=== PATIENT | female | born 1975 | race American Indian/Alaskan Native ===

== ENCOUNTER 2017-08-24 11:21 | Emergency (ER) | payer BC, OTHER ==
[2017-08-24 11:55] VITALS: BP 158/100
[2017-08-24] MEDS ORDERED: MOTRIN PO ONE (12:32)
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
[2017-08-24 13:12] LABS: Bilirubin,Urine NEG (Negative); Blood,Urine SM (Negative); Ketones,Urine NEG (Negative); Leukocyte Esterase,Urine NEG (Negative); Mucus,Urine FEW /HPF; Nitrite,Urine NEG (Negative); Protein,Urine <15 mg/dL mg/dL (Negative); Urobilinogen,Urine < 2.0 mg/dL (<2.0)
== END 2017-08-24 12:56 | disposition home or self-care (01) ==
LOC: ED 11:21
DX: S13.4XXA Sprain of ligaments of cervical spine, initial encounter (principal); S39.012A Strain of muscle, fascia and tendon of lower back, initial encounter; F17.200 Nicotine dependence, unspecified, uncomplicated; I10 Essential (primary) hypertension; V89.2XXA Person injured in unspecified motor-vehicle accident, traffic, initial encounter; Y93.89 Activity, other specified; Y92.89 Other specified places as the place of occurrence of the external cause; Y99.8 Other external cause status
CPT/HCPCS: 81001; 81025; 99283

== ENCOUNTER 2019-02-16 11:32 | Emergency (ER) | payer BC, OTHER ==
--- NOTE | 2019-02-16 11:43 | Emergency Department Report ---
Chief Complaint: Abdominal Pain Stated Complaint: ABD PAIN Time Seen by Provider: 02/16/19 11:38 - HPI History of Present Illness: This is a 44 y.o. F. that presents to the ER with right flank pain x 1 week. Took gas-x this morning with no improvement of symptoms. Admits to nausea w/o vomiting. Denies diarrhea LMP 02/02/2019 PMH: HTN - Exam Vital Signs: Vital Signs 02/16/19 11:40 Temperature 97.9 F Pulse Rate 98 H Respiratory 16 Rate Blood Pressure 192/114 O2 Sat by Pulse 100 Oximetry MSE screening note: Focused history and physical exam performed. Due to findings the following was ordered: This initial assessment/diagnostic orders/clinical plan/treatment(s) is/are subject to change based on patient's health status, clinical progression and re- assessment by fellow clinical providers in the ED. Further treatment and workup at subsequent clinical providers discretion. Patient/guardians urged not to elope from the ED as their condition may be serious if not clinically assessed and managed. Initial orders include: Labs ED Disposition for MSE Condition: Stable Instructions: Abdominal Pain (ED)
[2019-02-16 12:45] LABS: Basophils # (Auto) 0.1 K/mm3 (0.0-0.1); Basophils % (Auto) 1.1 % (0.0-1.8); Eosinophils # (Auto) 0.4 K/mm3 (0.0-0.4); Eosinophils % (Auto) 3.8 % (0.0-4.3); Hematocrit 34.6 % (30.3-42.9); Hemoglobin 11.7 gm/dl (10.1-14.3); Lymphocytes # (Auto) 2.2 K/mm3 (1.2-5.4); Lymphocytes % (Auto) 23.2 % (13.4-35.0); Mean Corpuscular HGB Conc 34 % (30-34); Mean Corpuscular Volume 76 fl (79-97); Monocytes # (Auto) 0.6 K/mm3 (0.0-0.8); Monocytes % (Auto) 5.8 % (0.0-7.3); Platelet Count 424 K/mm3 (140-440); Red Blood Count 4.53 M/mm3 (3.65-5.03); Red Cell Distribution Width 17.6 % (13.2-15.2)
[2019-02-16] MEDS ORDERED: MORPHINE IV ONE ×2 (12:52→15:07)
[2019-02-16] MEDS ORDERED: ZOFRAN IV ONE (12:52)
[2019-02-16] MEDS ORDERED: NACL 0.9% 1000 ML 1,000 ML IV ONE (12:52)
--- NOTE | 2019-02-16 12:58 | Emergency Department Report ---
<BUTCH SOLIMANBENJAMIN Nichols - Last Filed: 02/16/19 16:53> ED Back Pain/Injury HPI - General Chief Complaint: Abdominal Pain Stated Complaint: ABD PAIN Time Seen by Provider: 02/16/19 11:38 Source: patient Limitations: No Limitations - History of Present Illness Initial Comments: This 44-year-old female presents to ED with right flank pain 1 week. Patient denies fever, nausea, vomiting, cough. Patient states pain is worse with twisting of torso, walking, deep breath. Patient states she initially thought it was a possible pulled muscle. Patient denies any recent trauma, excessive pushing, pulling, or lifting. Patient denies shortness of breath, but states that the pain "takes my breath away." Patient states pain began underneath her right shoulder blade and radiates around to the right upper quadrant. Patient reports previous cholecystectomy. MD Complaint: back pain -: week(s) (1) Similar Symptoms Previously: No Radiation: abdomen Severity: severe Quality: sharp Consistency: intermittent Improves With: immobilization Worsens With: movement, deep breaths/cough Context: unknown Associated Symptoms: abdominal pain. denies: chest pain, cough, fever/chills, shortness of breath - Related Data Home Medications Medication Instructions Recorded Confirmed Last Taken Triamterene [Dyrenium] 25 mg PO DAILY 03/16/18 06/09/18 Unknown Previous Rx's Medication Instructions Recorded Last Taken Type Azithromycin [Zithromax Z-NOE] 250 mg PO DAILY 5 Days #6 tab 02/16/19 Unknown Rx Doxycycline Monohydrate 100 mg PO BID 10 Days #20 capsule 02/16/19 Unknown Rx Naproxen [Naprosyn] 500 mg PO BID #20 tablet 02/16/19 Unknown Rx methOCARBAMOL [Robaxin TAB] 500 mg PO Q8HR PRN #20 tablet 02/16/19 Unknown Rx traMADol [Ultram] 50 mg PO Q6HR PRN #7 tablet 02/16/19 Unknown Rx Allergies Allergy/AdvReac Type Severity Reaction Status Date / Time No Known Allergies Allergy Verified 02/16/19 11:32 ED Review of Systems Comment: All other systems reviewed and negative Constitutional: denies: chills, fever Respiratory: denies: cough, shortness of breath Cardiovascular: denies: chest pain Gastrointestinal: abdominal pain. denies: nausea, vomiting Musculoskeletal: back pain ED Past Medical Hx - Past Medical History Hx Hypertension: Yes Hx Diabetes: Yes (" BOARDERLINE" - NO MEDS) Hx GERD: Yes Hx Sickle Cell Disease: No (SC TRAIT ONLY) Hx HIV: No - Surgical History Hx Cholecystectomy: Yes - Social History Smoking Status: Current Every Day Smoker Substance Use Type: None - Medications Home Medications: Home Medications Medication Instructions Recorded Confirmed Last Taken Type Triamterene [Dyrenium] 25 mg PO DAILY 03/16/18 06/09/18 Unknown History Azithromycin [Zithromax Z-NOE] 250 mg PO DAILY 5 Days #6 tab 02/16/19 Unknown Rx Doxycycline Monohydrate 100 mg PO BID 10 Days #20 capsule 02/16/19 Unknown Rx Naproxen [Naprosyn] 500 mg PO BID #20 tablet 02/16/19 Unknown Rx methOCARBAMOL [Robaxin TAB] 500 mg PO Q8HR PRN #20 tablet 02/16/19 Unknown Rx traMADol [Ultram] 50 mg PO Q6HR PRN #7 tablet 02/16/19 Unknown Rx ED Physical Exam - General Limitations: No Limitations General appearance: alert, in no apparent distress - Head Head exam: Present: atraumatic, normocephalic - Eye Eye exam: Present: normal appearance - ENT ENT exam: Present: mucous membranes moist - Neck Neck exam: Present: normal inspection - Respiratory Respiratory exam: Present: normal lung sounds bilaterally, chest wall tenderness (right lateral lower chest wall). Absent: respiratory distress - Cardiovascular Cardiovascular Exam: Present: regular rate, normal rhythm - GI/Abdominal GI/Abdominal exam: Present: soft, tenderness (RUQ) - Back Exam Back exam: Present: tenderness (along medial border of right scapula) - Neurological Exam Neurological exam: Present: alert, oriented X3 - Psychiatric Psychiatric exam: Present: normal affect, normal mood - Skin Skin exam: Present: warm, dry, intact, normal color ED Medical Decision Making - Lab Data Result diagrams: 02/16/19 12:35 02/16/19 12:35 - Radiology Data Radiology results: report reviewed, image reviewed - Differential Diagnosis muscle strain, PE, pyelonephritis ED Disposition Clinical Impression: CAP (community acquired pneumonia) Qualifiers: Laterality: unspecified laterality Qualified Code(s): J18.9 - Pneumonia, unspecified organism Upper back strain Qualifiers: Encounter type: initial encounter Qualified Code(s): S29.012A - Strain of muscle and tendon of back wall of thorax, initial encounter Disposition: DC-01 TO HOME OR SELFCARE Is pt being admited?: No Condition: Stable Instructions: Thoracic Pain (ED), Muscle Spasm (ED), Back Pain (ED), Bacterial Pneumonia (ED) Prescriptions: Doxycycline Monohydrate 100 mg PO BID 10 Days #20 capsule Naproxen [Naprosyn] 500 mg PO BID #20 tablet methOCARBAMOL [Robaxin TAB] 500 mg PO Q8HR PRN #20 tablet PRN Reason: Muscle Spasm traMADol [Ultram] 50 mg PO Q6HR PRN #7 tablet PRN Reason: Pain Azithromycin [Zithromax Z-NOE] 250 mg PO DAILY 5 Days #6 tab Referrals: [place] E[place]KA [Primary Care Provider] - 3-5 Days <MARILIA TO - Last Filed: 02/16/19 17:51> ED Review of Systems ROS: Stated complaint: ABD PAIN Other details as noted in HPI ED Course Vital Signs 02/16/19 02/16/19 02/16/19 11:40 13:15 13:25 Temperature 97.9 F Pulse Rate 98 H Respiratory 16 17 16 Rate Blood Pressure 192/114 O2 Sat by Pulse 100 Oximetry 02/16/19 02/16/19 15:11 17:08 Temperature 97.8 F Pulse Rate 77 Respiratory 18 16 Rate Blood Pressure 136/82 O2 Sat by Pulse 100 Oximetry ED Medical Decision Making - Lab Data Result diagrams: 02/16/19 12:35 02/16/19 12:35 - Medical Decision Making Ordering Physician: ROBINSON SOLIMAN MD Date of Service: 02/16/19 Procedure(s): CT angio chest Accession Number(s): [id number] cc: ROBINSON SOLIMAN MD PROCEDURE: CT ANGIO CHEST TECHNIQUE: TECHNIQUE: CT examination of the chest after IV contrast. Multiplanar angiographic image post processing. CT DOSE LENGTH PRODUCT: 705.8 mGycm HISTORY: right chest pain COMPARISONS: None . FINDINGS: Slight cardiomegaly without pericardial effusion. Intact normal caliber thoracic aorta. Normal-appearing esophagus. No hilar mass or mediastinal adenopathy. The visualized pulmonary arteries are diffusely patent bilaterally. There is no filling defect to suggest PE. Nonspecific diffusely decreased density of liver parenchyma may reflect fatty infiltration. No visualized focal liver lesion. Surgically absent gallbladder. Small hiatal hernia. Otherwise normal visible portion of stomach. Degenerative change in the regional skeleton. No acute fracture. No pneumothorax or pleural effusion. Nonspecific groundglass opacities diffusely throughout the lung parenchyma bila terally. No focal pulmonary consolidation. No definite lung mass or pulmonary nodule. IMPRESSION: Nonspecific groundglass diffuse opacity throughout the lung parenchyma bilaterally may reflect pulmonary edema and/or pneumonitis Slight cardiomegaly Suggestion of hepatic steatosis Small hiatal hernia No CT evidence of pulmonary arterial embolic disease This document is electronically signed by Scotty Thompson MD., February 16 2019 05:00:44 PM ET Transcribed By: BAL Dictated By: SCOTTY THOMPSON MD Electronically Authenticated By: SCOTTY THOMPSON MD Signed Date/Time: 02/16/19 1702 DD/ 1543 TD/TT: 02/16/19 1543 Critical care attestation.: If time is entered above; I have spent that time in minutes in the direct care of this critically ill patient, excluding procedure time. ED Disposition Time of Disposition: 17:51
[2019-02-16 13:12] LABS: Alanine Aminotransferase 24 units/L (7-56); BUN/Creatinine Ratio 17; Blood Urea Nitrogen 10 mg/dL (7-17); Calcium 9.2 mg/dL (8.4-10.2); Hemolysis Index 2
[2019-02-16 13:23] LABS: Bacteria,Urine 1+ /HPF (Negative); Bilirubin,Urine NEG (Negative); Blood,Urine SM (Negative); Color,Urine Yellow (Yellow); Mucus,Urine FEW /HPF; Protein,Urine <15 mg/dL mg/dL (Negative); Urobilinogen,Urine < 2.0 mg/dL (<2.0)
[2019-02-16] MEDS ORDERED: MORPHINE ONE (15:11)
--- NOTE | 2019-02-16 17:02 | Cat Scan Report ---
PROCEDURE: CT ANGIO CHEST TECHNIQUE: TECHNIQUE: CT examination of the chest after IV contrast. Multiplanar angiographic image post processing. CT DOSE LENGTH PRODUCT: 705.8 mGycm HISTORY: right chest pain COMPARISONS: None . FINDINGS: Slight cardiomegaly without pericardial effusion. Intact normal caliber thoracic aorta. Normal-appearing esophagus. No hilar mass or mediastinal adenop athy. The visualized pulmonary arteries are diffusely patent bilaterally. There is no filling defect to sug gest PE. Nonspecific diffusely decreased density of liver parenchyma may reflect fatty infiltration. No visual ized focal liver lesion. Surgically absent gallbladder. Small hiatal hernia. Otherwise normal visible portion of stomach. Degenerative change in the regional skeleton. No acute fracture. No pneumothorax or pleural effusion. Nonspecific groundglass opacities diffusely throughout the lung parenchyma bilaterally. No focal pulm onary consolidation. No definite lung mass or pulmonary nodule. IMPRESSION: Nonspecific groundglass diffuse opacity throughout the lung parenchyma bilaterally may reflect pulmon jaya edema and/or pneumonitis Slight cardiomegaly Suggestion of hepatic steatosis Small hiatal hernia No CT evidence of pulmonary arterial embolic disease This document is electronically signed by Scotty Thompson MD., February 16 2019 05:00:44 PM ET
[2019-02-16 17:14] VITALS: BP 136/82
== END 2019-02-16 18:05 | disposition home or self-care (01) ==
LOC: ED 11:32
DX: S29.012A Strain of muscle and tendon of back wall of thorax, initial encounter (principal); J18.9 Pneumonia, unspecified organism; I10 Essential (primary) hypertension; K21.9 Gastro-esophageal reflux disease without esophagitis; F17.200 Nicotine dependence, unspecified, uncomplicated; X58.XXXA Exposure to other specified factors, initial encounter; Y93.89 Activity, other specified; Y92.89 Other specified places as the place of occurrence of the external cause; Y99.8 Other external cause status
CPT/HCPCS: 36415; 71275; 80053; 81001; 83690; 84703; 85025; 85379; 96374; 96375; 99284; J2270; J2405; J7030; Q9967

== ENCOUNTER 2020-05-17 07:58 | Emergency (ER) | payer SELFPAY ==
[2020-05-17 08:06] VITALS: BP 139/102
--- NOTE | 2020-05-17 09:29 | Emergency Department Report ---
ED Abdominal Pain HPI - General Chief Complaint: Abdominal Pain Stated Complaint: BACK AND PELVIC PAIN Time Seen by Provider: 05/17/20 08:59 Source: patient Mode of arrival: Ambulatory Limitations: No Limitations - History of Present Illness Initial Comments: 45-year-old obese -[place] female with past medical history of uterine fibroid presents emergency department complaining of lower abdominal cramping and with no blood with no blood with no bleeding in and bladder pressure. Reports no hematuria no hematemesis hematochezia no melena no fever, chills, sweats no chest pain no no vomiting. No coryza Complaint: abdominal pain Location: diffuse Radiation: none Migration to: suprapubic Improves With: nothing Worsens With: nothing Associated Symptoms: nausea. denies: dysuria, hematemesis, anorexia, syncope - Related Data Home Medications Medication Instructions Recorded Confirmed Last Taken Triamterene [Dyrenium] 25 mg PO DAILY 03/16/18 06/09/18 Unknown Previous Rx's Medication Instructions Recorded Last Taken Type Azithromycin [Zithromax Z-NOE] 250 mg PO DAILY 5 Days #6 tab 02/16/19 Unknown Rx Doxycycline Monohydrate 100 mg PO BID 10 Days #20 capsule 02/16/19 Unknown Rx Naproxen [Naprosyn] 500 mg PO BID #20 tablet 02/16/19 Unknown Rx methOCARBAMOL [Robaxin TAB] 500 mg PO Q8HR PRN #20 tablet 02/16/19 Unknown Rx traMADoL [Ultram] 50 mg PO Q6HR PRN #7 tablet 02/16/19 Unknown Rx Ketorolac [Toradol] 10 mg PO Q6H PRN #14 tablet 05/17/20 Unknown Rx Nitrofurantoin Frederick/M-Cryst 100 mg PO Q12HR #20 capsule 05/17/20 Unknown Rx [Macrobid CAP] Allergies Allergy/AdvReac Type Severity Reaction Status Date / Time No Known Allergies Allergy Verified 02/16/19 11:32 ED Review of Systems ROS: Stated complaint: BACK AND PELVIC PAIN Other details as noted in HPI Comment: All other systems reviewed and negative ED Past Medical Hx - Past Medical History Previous Medical History?: Yes Hx Hypertension: Yes Hx Diabetes: Yes (" BOARDERLINE" - NO MEDS) Hx GERD: Yes Hx Sickle Cell Disease: No (SC TRAIT ONLY) Hx HIV: No - Surgical History Past Surgical History?: Yes Hx Cholecystectomy: Yes - Social History Smoking Status: Current Every Day Smoker Substance Use Type: None - Medications Home Medications: Home Medications Medication Instructions Recorded Confirmed Last Taken Type Triamterene [Dyrenium] 25 mg PO DAILY 03/16/18 06/09/18 Unknown History Azithromycin [Zithromax Z-NOE] 250 mg PO DAILY 5 Days #6 tab 02/16/19 Unknown Rx Doxycycline Monohydrate 100 mg PO BID 10 Days #20 capsule 02/16/19 Unknown Rx Naproxen [Naprosyn] 500 mg PO BID #20 tablet 02/16/19 Unknown Rx methOCARBAMOL [Robaxin TAB] 500 mg PO Q8HR PRN #20 tablet 02/16/19 Unknown Rx traMADoL [Ultram] 50 mg PO Q6HR PRN #7 tablet 02/16/19 Unknown Rx Ketorolac [Toradol] 10 mg PO Q6H PRN #14 tablet 05/17/20 Unknown Rx Nitrofurantoin Frederick/M-Cryst 100 mg PO Q12HR #20 capsule 05/17/20 Unknown Rx [Macrobid CAP] ED Physical Exam - General Limitations: No Limitations General appearance: alert, in no apparent distress - Head Head exam: Present: atraumatic, normocephalic - Eye Eye exam: Present: normal appearance, PERRL, EOMI Pupils: Present: normal accommodation - ENT ENT exam: Present: normal exam, mucous membranes moist - Neck Neck exam: Present: normal inspection, full ROM - Respiratory Respiratory exam: Present: normal lung sounds bilaterally. Absent: respiratory distress, wheezes, rales, chest wall tenderness, accessory muscle use, decreased breath sounds - Cardiovascular Cardiovascular Exam: Present: regular rate, normal rhythm. Absent: systolic murmur, diastolic murmur, rubs, gallop - GI/Abdominal GI/Abdominal exam: Present: soft, normal bowel sounds - Extremities Exam Extremities exam: Present: normal inspection, normal capillary refill - Back Exam Back exam: Present: normal inspection. Absent: CVA tenderness (R), CVA tenderness (L) - Neurological Exam Neurological exam: Present: alert, oriented X3, CN II-XII intact - Psychiatric Psychiatric exam: Present: normal affect, normal mood - Skin Skin exam: Present: warm, dry, intact, normal color. Absent: rash ED Course Vital Signs 09/02/20 08:04 Temperature 98.2 F Pulse Rate 101 H Respiratory 20 Rate Blood Pressure 139/102 O2 Sat by Pulse 97 Oximetry ED Medical Decision Making - Lab Data Result diagrams: 05/17/20 09:18 05/17/20 09:18 Lab Results 05/17/20 05/17/20 05/17/20 Range/Units 09:18 09:18 Unknown WBC 8.8 (4.5-11.0) K/mm3 RBC 5.24 H (3.65-5.03) M/mm3 Hgb 13.7 (10.1-14.3) gm/dl Hct 39.8 (30.3-42.9) % MCV 76 L (79-97) fl MCH 26 L (28-32) pg MCHC 34 (30-34) % RDW 17.3 H (13.2-15.2) % Plt Count 388 (140-440) K/mm3 Lymph % (Auto) 22.6 (13.4-35.0) % Frederick % (Auto) 6.1 (0.0-7.3) % Eos % (Auto) 5.3 H (0.0-4.3) % Baso % (Auto) 1.2 (0.0-1.8) % Lymph # 2.0 (1.2-5.4) K/mm3 Frederick # 0.5 (0.0-0.8) K/mm3 Eos # 0.5 H (0.0-0.4) K/mm3 Baso # 0.1 (0.0-0.1) K/mm3 Seg Neutrophils % 64.8 (40.0-70.0) % Seg Neutrophils # 5.7 (1.8-7.7) K/mm3 Sodium 141 (137-145) mmol/L Potassium 4.0 (3.6-5.0) mmol/L Chloride 100.4 (98-107) mmol/L Carbon Dioxide 23 (22-30) mmol/L Anion Gap 22 mmol/L BUN 10 (7-17) mg/dL Creatinine 0.7 (0.6-1.2) mg/dL Estimated GFR > 60 ml/min BUN/Creatinine Ratio 14 % Glucose 121 H (65-100) mg/dL Calcium 10.0 (8.4-10.2) mg/dL Total Bilirubin 0.50 (0.1-1.2) mg/dL AST 18 (5-40) units/L ALT 18 (7-56) units/L Alkaline Phosphatase 72 (35-129) units/L Total Protein 7.7 (6.3-8.2) g/dL Albumin 4.5 (3.9-5) g/dL Albumin/Globulin Ratio 1.4 % Urine Color Yellow (Yellow) Urine Turbidity Clear (Clear) Urine pH 6.0 (5.0-7.0) Ur Specific [place] 1.016 (1.003-1.030) Urine Protein <15 mg/dl (Negative) mg/dL Urine Glucose (UA) Neg (Negative) mg/dL Urine Ketones Neg (Negative) mg/dL Urine Blood Neg (Negative) Urine Nitrite Neg (Negative) Urine Bilirubin Neg (Negative) Urine Urobilinogen < 2.0 (<2.0) mg/dL Ur Leukocyte Esterase Mod (Negative) Urine WBC (Auto) 7.0 H (0.0-6.0) /HPF Urine RBC (Auto) 1.0 (0.0-6.0) /HPF U Epithel Cells (Auto) 10.0 (0-13.0) /HPF Urine HCG, Qual Negative (Negative) - Radiology Data Radiology results: report reviewed [facility] [address] [place] [address] Ultrasound Report Signed Patient: LINDSAY STONE MR#: [id number] : 1975 Acct:[id number] Age/Sex: 45 / F ADM Date: 05/17/20 Loc: ED Attending Dr: Ordering Physician: ARMIN MARCELINO Date of Service: 05/17/20 Procedure(s): US transvaginal Accession Number(s): [id number] cc: ARMIN MARCELINO Pelvic Ultrasound HISTORY: pelvic pain. TECHNIQUE: Grayscale and color imaging performed. COMPARISON: None FINDINGS: Uterus measures 9.5 x 5.3 x 5.8 cm with 2 hypoechoic masses both of the uterine body the largest of which measures 3.4 cm in maximal dimension. Endometrial echo complex measures 9 mm. Ovaries appear unremarkable. No pelvic free fluid identified. IMPRESSION: Small uterine fibroids. Otherwise unremarkable exam. Signer Name: Pritesh Wilkerson MD Signed: 05/17/2020 11:52 AM Workstation Name: [id number] Transcribed By: JEANETTE Dictated By: Pritesh Wilkerson MD Electronically Authenticated By: Pritesh Wilkerson MD Signed Date/Time: 05/17/20 1152 DD/ 1150 TD/TT: - Medical Decision Making This patient presents with abdominal pain of unclear etiology. Their evaluation has not identified a emergent etiology for the abdominal pain. Specifically, given the very benign exam, normal laboratory studies, and lack of significant risk factors, I have a very low suspicion for appendicitis, ischemic bowel, bowel perforation, or any other life threatening disease. I have discussed with the patient the level of uncertainty with undifferentiated abdominal pain and clearly explained the need to follow-up as noted on the discharge instructions, or return to the Emergency Department immediately if the pain worsens, develops fever, persistent and uncontrollable vomiting, or for any new symptoms or concerns. I discussed with the patient that this presentation today for ab dominal pain could represent a significant risk for an acute abdominal process. Although the tests in the ED were essentially normal, there is still a possibility of a process such as appendicitis, diverticulitis, cholecystitis, ulcer, early bowel obstruction, mesenteric ischemia, kidney stone, or even kidney infection which could subsequently cause disability or . The patient understands that they must return within 24 hours for a recheck or see their physician within 24 hours for re-exam due to the possibility of significant surgical or medical process. Critical care attestation.: If time is entered above; I have spent that time in minutes in the direct care of this critically ill patient, excluding procedure time. ED Disposition Clinical Impression: UTI (urinary tract infection), Uterine fibroid Disposition: - TO HOME OR SELFCARE Is pt being admited?: No Does the pt Need Aspirin: No Condition: Stable Instructions: Uterine Fibroids (ED), Urinary Tract Infection in Women (ED), Dysuria (ED), Abdominal Pain (ED) Prescriptions: Nitrofurantoin Frederick/M-Cryst [Macrobid CAP] 100 mg PO Q12HR #20 capsule Ketorolac [Toradol] 10 mg PO Q6H PRN #14 tablet PRN Reason: Pain Referrals: PRIMARY CAREM[facility] [Primary Care Provider] - 3-5 Days [facility] [Provider Group] - 3-5 Days Forms: Work/School Release Form(ED)
[2020-05-17 09:38] LABS: Basophils # (Auto) 0.1 K/mm3 (0.0-0.1); Basophils % (Auto) 1.2 % (0.0-1.8); Eosinophils # (Auto) 0.5 K/mm3 (0.0-0.4); Eosinophils % (Auto) 5.3 % (0.0-4.3); Hematocrit 39.8 % (30.3-42.9); Hemoglobin 13.7 gm/dl (10.1-14.3); Lymphocytes % (Auto) 22.6 % (13.4-35.0); Mean Corpuscular HGB Conc 34 % (30-34); Mean Corpuscular Volume 76 fl (79-97); Monocytes # (Auto) 0.5 K/mm3 (0.0-0.8); Monocytes % (Auto) 6.1 % (0.0-7.3); Platelet Count 388 K/mm3 (140-440); Red Blood Count 5.24 M/mm3 (3.65-5.03); Red Cell Distribution Width 17.3 % (13.2-15.2)
[2020-05-17 09:59] LABS: Bilirubin,Urine NEG (Negative); Blood,Urine NEG (Negative); Color,Urine Yellow (Yellow); Protein,Urine <15 mg/dL mg/dL (Negative); Urobilinogen,Urine < 2.0 mg/dL (<2.0)
[2020-05-17 10:00] LABS: HCG Qualitative,Urine Negative (Negative)
[2020-05-17 10:21] LABS: Alanine Aminotransferase 18 units/L (7-56); Albumin 4.5 g/dL (3.9-5); Blood Urea Nitrogen 10 mg/dL (7-17); Hemolysis Index 3
[2020-05-17 10:24] LABS: BUN/Creatinine Ratio 14
--- NOTE | 2020-05-17 11:32 | Ultrasound Report ---
Pelvic Ultrasound HISTORY: pelvic pain. TECHNIQUE: Grayscale and color imaging performed. COMPARISON: None FINDINGS: Uterus measures 9.5 x 5.3 x 5.8 cm with 2 hypoechoic masses both of the uterine body the la rgest of which measures 3.4 cm in maximal dimension. Endometrial echo complex measures 9 mm. Right ov jaya is unremarkable. Left ovary is not visualized. No pelvic free fluid identified. IMPRESSION: 1. Small uterine fibroids. 2. Nonvisualization of the left ovary. Normal right ovary. Signer Name: Pritesh Wilkerson MD Signed: 05/17/2020 11:27 AM Workstation Name: [id number]
[2020-05-17] MEDS ORDERED: MORPHINE 4 MG/1 ML INJ IV STA (11:34)
[2020-05-17] MEDS ORDERED: IBUPROFEN 400 MG TAB PO ONE (11:41)
[2020-05-17] MEDS ORDERED: IBUPROFEN 800 MG TAB ONE (11:44)
--- NOTE | 2020-05-17 11:56 | Ultrasound Report ---
Pelvic Ultrasound HISTORY: pelvic pain. TECHNIQUE: Grayscale and color imaging performed. COMPARISON: None FINDINGS: Uterus measures 9.5 x 5.3 x 5.8 cm with 2 hypoechoic masses both of the uterine body the la rgest of which measures 3.4 cm in maximal dimension. Endometrial echo complex measures 9 mm. Ovaries appear unremarkable. No pelvic free fluid identified. IMPRESSION: Small uterine fibroids. Otherwise unremarkable exam. Signer Name: Pritesh Wilkerson MD Signed: 05/17/2020 11:52 AM Workstation Name: [id number]
== END 2020-05-17 13:17 | disposition home or self-care (01) ==
LOC: ED 07:58
DX: N39.0 Urinary tract infection, site not specified (principal); D25.9 Leiomyoma of uterus, unspecified; K21.9 Gastro-esophageal reflux disease without esophagitis; I10 Essential (primary) hypertension; E11.9 Type 2 diabetes mellitus without complications; F17.200 Nicotine dependence, unspecified, uncomplicated; Z79.899 Other long term (current) drug therapy; Z90.49 Acquired absence of other specified parts of digestive tract
CPT/HCPCS: 36415; 76830; 76856; 80053; 81001; 81025; 85025; 96374; 99284; J2270

== ENCOUNTER 2020-11-03 10:07 | Emergency (ER) | payer SELFPAY ==
[2020-11-03 11:04] VITALS: BP 136/95
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
== END 2020-11-03 11:35 | disposition left against medical advice (07) ==
LOC: ED 10:07
DX: S09.90XA Unspecified injury of head, initial encounter (principal); Z53.21 Procedure and treatment not carried out due to patient leaving prior to being seen by health care provider; W22.8XXA Striking against or struck by other objects, initial encounter; Y93.89 Activity, other specified; Y92.89 Other specified places as the place of occurrence of the external cause; Y99.8 Other external cause status

== ENCOUNTER 2021-01-22 13:33 | Emergency (ER) | payer SELFPAY ==
[2021-01-22 15:11] VITALS: BP 171/91
== END 2021-01-23 06:50 ==
LOC: ED 13:33
DX: M54.9 Dorsalgia, unspecified (principal); Z53.21 Procedure and treatment not carried out due to patient leaving prior to being seen by health care provider

== ENCOUNTER 2021-04-22 12:24 | Emergency (ER) | payer SELFPAY | END 2021-04-22 15:39 | LOC: ED 12:24 | DX: M79.18 Myalgia, other site (principal); Z53.21 Procedure and treatment not carried out due to patient leaving prior to being seen by health care provider ==

== ENCOUNTER 2021-04-28 14:14 | Emergency (ER) | payer OTHER, SELFPAY ==
[2021-04-28 19:46] VITALS: BP 141/88
== END 2021-04-28 21:42 | disposition home or self-care (01) ==
LOC: ED 14:14
DX: J06.9 Acute upper respiratory infection, unspecified (principal); J18.9 Pneumonia, unspecified organism; R50.9 Fever, unspecified; E66.01 Morbid (severe) obesity due to excess calories; I10 Essential (primary) hypertension; K21.9 Gastro-esophageal reflux disease without esophagitis; E11.9 Type 2 diabetes mellitus without complications; Z90.49 Acquired absence of other specified parts of digestive tract; Z79.899 Other long term (current) drug therapy; Z20.822 Contact with and (suspected) exposure to COVID-19; Z68.41 Body mass index [BMI] 40.0-44.9, adult
CPT/HCPCS: 36415; 71046; 80053; 83690; 83735; 84484; 84703; 85025; 93005